=== PATIENT | male | born 1960 | race Caucasian/White ===

== ENCOUNTER → 2018-08-06 | Day surgery (SDC) | payer BC ==
[~2018-08-06] MED LIST: ATOR10TA60 PO; CHLO25TA10 PO; IV RINGERS,LACTATED 1000ML 1,000 ML IV SCH; LIDOCAINE 1% PF 2 ML VIAL. ID PRN; LOSA100T14 PO; METF500T9 PO; MIDAZOLAM HCL/PF 2 MG/2 ML VIAL. IV PRN; fentaNYL PF VIAL 100 MCG/2 ML VIAL IV PRN
[2018-08-06 13:06] VITALS: BP 146/83
--- NOTE | 2018-08-07 02:01 | CONS ---
DATE OF CONSULTATION: 08/06/2018 REFERRING PHYSICIAN: Geovani Deleon MD REASON: Colorectal screening. HISTORY OF PRESENT ILLNESS: A 58-year-old male with a past medical history significant for diabetes, hypertension and hyperlipidemia is seen for interval colonoscopy exam. Bowel habits are regular without diarrhea or constipation. There has been no melena and/or hematochezia. Family history is likewise unrevealing for colon polyps or colon cancer. Last colonoscopy was approximately 9 years ago. Weight and appetite are stable. He is without additional complaints. PAST MEDICAL HISTORY: Status post history of diabetes, hyperlipidemia, hypertension and history of kidney stones as well. PAST SURGICAL HISTORY: No past surgeries. FAMILY AND SOCIAL HISTORY: Social drinker and nonsmoker. REVIEW OF SYSTEMS: As per records. PHYSICAL EXAMINATION: GENERAL: Reveals a well-nourished, well-developed male. VITAL SIGNS: Temperature is 97.5, pulse 50 and respiratory rate is 18. HEENT: Reveals normocephalic and atraumatic head. Pupils and extraocular muscles are not tested. Sclerae anicteric. NECK: Supple. LUNGS: Clear. CARDIOVASCULAR: Reveals an S1, S2 without S3, S4 or appreciable murmur. ABDOMEN: Reveals soft abdomen and normoactive bowel sounds without appreciable hepatosplenomegaly. EXTREMITIES: Reveals no cyanosis, clubbing or edema. IMPRESSION: Colorectal screening is warranted at this time. Risks and benefits of the procedure including risk of hemorrhage and perforation have been discussed. The patient is willing to proceed. I thank Dr. Deleon for allowing us to consult and participate in the patient's care. YANCI PANDA MD DR: ARNOLDO/brynn JOB#: [id number] / [id number] GEOVANI Bianchi MD
== END | disposition home or self-care (01) ==
LOC: SURG 10:39
PROVIDERS: ATTEND Internal Medicine Gastroenterology
DX: Z12.11 Encounter for screening for malignant neoplasm of colon (principal); K57.30 Diverticulosis of large intestine without perforation or abscess without bleeding; K64.0 First degree hemorrhoids; I10 Essential (primary) hypertension; E11.9 Type 2 diabetes mellitus without complications; E78.5 Hyperlipidemia, unspecified; Z87.442 Personal history of urinary calculi; Z72.89 Other problems related to lifestyle; G43.909 Migraine, unspecified, not intractable, without status migrainosus; Z79.899 Other long term (current) drug therapy; Z79.84 Long term (current) use of oral hypoglycemic drugs; Z98.890 Other specified postprocedural states
CPT/HCPCS: 45378; 82962